=== PATIENT | male | born 1960 | race Two or more races ===

== ENCOUNTER 2020-02-07 21:41 | Emergency (ER) | payer MEDICARE ==
[~2020-02-07] VITALS: Ht 154.9 cm; Wt 59.0 kg
[2020-02-07 21:50] VITALS: BP 147/86
--- NOTE | 2020-02-07 21:50 | NUR ---
ED Nurse Note: pt ambulated into ed from home CO inability to hear out of both ears. VSS no ss of distress noted.
--- NOTE | 2020-02-07 21:50 | NUR ---
ED Nurse Note: ERMD at bedside
--- NOTE | 2020-02-07 22:00 | NUR ---
ED Nurse Note: Pt resting in bed. Will continue to monitor for dizziness. VSS no ss of distress noted. Pt instructed not to get up without asking for assistance.
[2020-02-07 22:25] VITALS: BP 135/84
--- NOTE | 2020-02-07 22:25 | Emergency Room Report ---
History of Present Illness General Chief Complaint: Earache Source: Patient Present Illness [facility] This is a 59-year-old male with a history of hypertension. He presents with chief complaint of ear pain. There is what he told the nursing staff but his chief complaint is more that he can hear. This been ongoing for a week but much worse today. He been using Q-tip without any relief. He said no still a bit of blood after using 1. No fever chest pain no nausea no vomiting pain no coughing congestion. Really not much pain. Allergies: Coded Allergies: No Known Allergies (Unverified , 02/07/20) COVID-19 Screening Contact w/high risk pt: No Recent Travel to affected area: No Experienced COVID-19 symptoms?: No COVID-19 Testing performed LOGISTICS SERVICE REPRESENTATIVE: No Patient History Past Medical History: see triage record, old chart reviewed, HTN Past Surgical History: none Pertinent Family History: none Social History: Denies: smoking Immunizations: other Reviewed Nursing Documentation: PMH: Agreed; PSxH: Agreed Nursing Documentation-PMH Hx Hypertension: Yes Hx Cerebrovascular Accident: Yes - x2 Review of Systems Eye: Denies: eye pain, blurred vision ENT: Reports: ear pain, hearing loss; Denies: nose congestion, throat swelling Respiratory: Denies: cough, shortness of breath Cardiovascular: Denies: chest pain, palpitations Gastrointestinal: Denies: abdominal pain, diarrhea, nausea, vomiting Musculoskeletal: Denies: back pain, joint pain Skin: Denies: rash Neurological: Denies: headache, numbness Endocrine: Denies: increased thirst, increased urine Hematologic/Lymphatic: Denies: easy bruising All Other Systems: negative except mentioned in HPI Physical Exam Vital Signs Date Time Temp Pulse Resp B/P (MAP) Pulse Ox O2 Delivery O2 Flow Rate FiO2 02/07/20 21:46 97.9 104 20 147/86 (106) 94 Room Air With high blood pressure Sp02 EP Interpretation: reviewed, normal General Appearance: well appearing, no apparent distress, alert Head: normocephalic, atraumatic Eyes: bilateral eye PERRL, bilateral eye EOMI ENT: hearing grossly normal, normal pharynx, other - Bilateral ear impacted with cerumen. Neck: full range of motion, supple, no meningismus Respiratory: chest non-tender, lungs clear, normal breath sounds Cardiovascular #1: regular rate, rhythm, no murmur Gastrointestinal: normal bowel sounds, non tender, no mass, no organomegaly, no bruit, non-distended Musculoskeletal: back normal, normal range of motion, gait/station normal Psychiatric: mood/affect normal Procedures Additional Procedure Procedure Narrative Procedure: Cerumen disimpaction Indication: Cerumen impaction Description: Medical Decision Making Diagnostic Impression: Primary Impression: Impacted cerumen of both ears ER Course This patient presents with hearing loss from cerumen impaction. He is back to normal after disimpaction. No evidence of any infection or trauma. Will discharge home. Last Vital Signs Date Time Temp Pulse Resp B/P (MAP) Pulse Ox O2 Delivery O2 Flow Rate FiO2 02/07/20 21:46 97.9 104 20 147/86 (106) 94 Room Air Status: improved Disposition: HOME, SELF-CARE Condition: Stable Additional Instructions: Do not use Q-tips. Follow-up with your doctor in 7 days. Return if worse. Humza Walter MD Feb 07, 2020 22:25
--- NOTE | 2020-02-07 22:25 | NUR ---
ER DISCHARGE NOTE: Patient is cleared to be discharged home per ERMD, pt is aox4, on room air, 99% with stable vital signs. pt was given dc instructions, pt was able to verbalize understanding, pt id band removed. pt is able to ambulate with steady gait. pt took all belongings.
[2020-02-07] MEDS ORDERED: COUMADIN3 MG ORAL (22:36)
== END 2020-02-07 22:25 | disposition home or self-care (01) ==
LOC: EMR 22:12
DX: H61.23 Impacted cerumen, bilateral (principal); I10 Essential (primary) hypertension; Z86.73 Personal history of transient ischemic attack (TIA), and cerebral infarction without residual deficits
CPT/HCPCS: 99282